=== PATIENT | female | born 1985 | race African-American/Black ===

== ENCOUNTER 2021-02-15 09:52 | Outpatient (CLI) | payer OTHER | END 2021-02-15 09:53 | disposition home or self-care (01) | LOC: CSHCT 09:52 | PROVIDERS: ATTEND Family Medicine Sports Medicine | DX: R31.29 Other microscopic hematuria (principal) | CPT/HCPCS: 74176 ==

== ENCOUNTER 2022-06-04 20:21 | Emergency (ER) | payer BC ==
[~2022-06-04 20:21] MED LIST: Iopamidol 370 76% 100 ML VIAL ONE
[2022-06-04] MEDS ORDERED: Ondansetron PF 4 MG/2 ML Vial ONE (20:42)
[2022-06-04] MEDS ORDERED: Morphine 2 MG/ML VIAL ONE ×2 (20:43)
[2022-06-04 21:24] LABS: #Basophils 0.1 10x3/uL (0.0-0.2); #Neutrophils 10.8 10x3/uL (1.5-8.4); %Basophils 0.4 % (0.0-2.0); %Eosinophils 0.2 % (0.0-6.0); %Lymphocytes 13.8 % (18.0-47.0); %Monocytes 7.5 % (0.0-10.0); %Neutrophils 77.3 % (40.0-75.0); Mean Corpuscular HGB CONC 30.4 g/dL (32.0-36.0); Mean Corpuscular Hemoglobin 26.3 pg (27.0-33.0); Mean Corpuscular Volume 86.3 fl (81.6-98.3); Mean Platelet Volume 10.2 fl (7.4-10.4); Platelet Count 500 10x3/uL (150-450); RBC Distribution Width 16.4 % (11.5-14.5); Red Blood Cell (RBC) Count 4.95 10x6/uL (3.90-5.03)
[2022-06-04 21:36] LABS: ALT (SGPT) 22 U/L (8-55); AST (SGOT) 12 U/L (5-34); Alkaline Phosphatase 147 U/L (40-110); BUN (Urea Nitrogen) 6 mg/dL (7.0-18.7); Bilirubin, Total 0.3 mg/dL (0.2-1.2); Calc. Creatinine Clearance 0 mL/min (70-130); Calcium 9.8 mg/dL (7.8-10.44); Chloride 106 mmol/L (98-107); Estimated GFR 61; Globulin 4.3 g/dL (2.4-3.5); Glucose 485 mg/dL (70-105); Lipase 7 U/L (8-78); Potassium 4.2 mmol/L (3.5-5.1); Protein, Total 8.3 g/dL (6.0-8.3); Sodium 135 mmol/L (136-145)
[2022-06-04 21:38] LABS: Carbon Dioxide Less than 8 mmol/L (22-29)
[2022-06-04 22:07] LABS: Bilirubin Neg (Negative); Blood, Urine 25 (Negative); Clarity Clear (Clear); Glucose, Urine (Dipstick) >=1000 mg/dL (Negative); Ketone, Urine 150 mg/dL (Negative); Leukocyte 25 (Negative); Nitrite Negative (Negative); Protein, Urine (Dipstick) 30 mg/dl (Neg-Trace); Urobilinogen Normal mg/dL (Less than 2)
[2022-06-04 22:18] LABS: Bacteria/HPF None Seen HPF (None Seen); RBC/HPF 0-3 HPF (0-3); Squamous Epithelial 0-3 HPF (0-3); Yeast-Budding Rare HPF (None Seen)
[2022-06-04 22:19] LABS: Yeast-Hyphae Rare HPF (None Seen)
[2022-06-04 22:53] LABS: SARS-CoV-2 NAA Rapid Test Not Detected (NotDetected)
[2022-06-04] MEDS ORDERED: Piperacillin/Tazobactam 4.5 GM VIAL ONE (23:37)
[2022-06-04] MEDS ORDERED: NS 0.9% w/ 40 MEQ KCL 1,000 ML IV ONE (23:52)
[2022-06-04] MEDS ORDERED: INSULIN REGULAR IN 0.9 % NACL 100 UNIT/100 ML BAG ONE (23:58)
[2022-06-05] MEDS ORDERED: Ondansetron PF 4 MG/2 ML Vial ONE (00:17)
[2022-06-05 00:43] LABS: Lactic Acid 2.2 mmol/L (0.5-2.2)
[2022-06-05 00:47] LABS: Actual Bicarbonate (HCO3v) 5 mEq/L (22-28); Base Excess -23.5 mEq/L (-2.0 to +3.0); Calcium, Ionized (venous) 1.18 mmol/L (1.16-1.32); Chloride (VBG) 107 mmol/L (98-106); Critical Notified By: CP.PH; Puncture Site Other Site; RapidComm Collect By LAB.YY; Sodium 134.8 mmol/L (133-146); pH (venous) 7.06 (7.32-7.43)
[2022-06-05] MEDS ORDERED: Lorazepam 2 MG/ML VIAL ONE (01:01)
== END 2022-06-05 01:58 | disposition short-term general hospital (02) ==
LOC: CSHERS 20:21
DX: E10.10 Type 1 diabetes mellitus with ketoacidosis without coma (principal); E10.65 Type 1 diabetes mellitus with hyperglycemia; Z20.822 Contact with and (suspected) exposure to COVID-19
CPT/HCPCS: 36415; 36416; 71045; 74177; 80053; 81003; 81015; 82010; 82805; 83605; 83690; 85025; 87040; 87077; 87086; 93005; 96361; 96365; 96367; 96368; 96375; J1815; J2060; J2270; J2405; J2543; J3480; Q9967

== ENCOUNTER 2022-10-25 06:33 | Day surgery (SDC) | payer BC ==
[2022-10-19 13:32] VITALS: BMI 42.0
[2022-10-25] MEDS ORDERED: Bupivacaine 0.25% HCL 30 ML VIAL ONE (08:21)
[2022-10-25] MEDS ORDERED: PROPOFOL 20 ML ONE (08:22)
[2022-10-25] MEDS ORDERED: EPINEPHrine 1 MG/ML AMP ONE (08:22)
[2022-10-25] MEDS ORDERED: Iopamidol 0 ML ONE (08:22)
[2022-10-25] MEDS ORDERED: Esmolol 100 MG/10 ML VIAL ONE (08:23)
[2022-10-25] MEDS ORDERED: Ondansetron PF 4 MG/2 ML Vial ONE (08:23)
[2022-10-25] MEDS ORDERED: Rocuronium Bromide 10 MG/ML (10ML VIAL) ONE (08:23)
[2022-10-25] MEDS ORDERED: Midazolam HCl 2 mg/2 ml Vial ONE (08:23)
[2022-10-25] MEDS ORDERED: Lidocaine 2% PF 5 ML VIAL ONE (08:23)
[2022-10-25] MEDS ORDERED: Dexamethasone 4 mg/ml Vial ONE (08:23)
[2022-10-25] MEDS ORDERED: Fentanyl 100 MCG/2 ML VIAL ONE ×2 (08:23→10:22)
[2022-10-25] MEDS ORDERED: SUGAMMADEX SODIUM 200 MG/2 ML VIAL ONE (08:34)
[2022-10-25] MEDS ORDERED: Clindamycin/D5W 600 mg/50 ml Premix Bag ONE (08:37)
[2022-10-25] MEDS ORDERED: Ketorolac Tromethamine 30 MG/ML VIAL ONE (10:03)
[2022-10-25] MEDS ORDERED: PHENYLEPHRINE-NS 100 MCG/ML 10 ML SYRINGE ONE (10:08)
[2022-10-25] MEDS ORDERED: HYDROcodone/Acetaminophen 5/325 mg Tablet ONE (12:16)
== END 2022-10-25 13:00 | disposition home or self-care (01) ==
LOC: CSHSDC 06:33
PROVIDERS: ATTEND Surgery
PROC: 0FT44ZZ Resection of Gallbladder, Percutaneous Endoscopic Approach (ICD-10-PCS; principal; 2022-10-25)
DX: K80.10 Calculus of gallbladder with chronic cholecystitis without obstruction (principal); K66.0 Peritoneal adhesions (postprocedural) (postinfection); E10.10 Type 1 diabetes mellitus with ketoacidosis without coma; E66.01 Morbid (severe) obesity due to excess calories; Z68.43 Body mass index [BMI] 50.0-59.9, adult; E55.9 Vitamin D deficiency, unspecified; M79.89 Other specified soft tissue disorders; E88.81 Metabolic syndrome and other insulin resistance; G47.33 Obstructive sleep apnea (adult) (pediatric); I10 Essential (primary) hypertension; K21.9 Gastro-esophageal reflux disease without esophagitis; E78.5 Hyperlipidemia, unspecified; E10.42 Type 1 diabetes mellitus with diabetic polyneuropathy; G43.909 Migraine, unspecified, not intractable, without status migrainosus; K80.50 Calculus of bile duct without cholangitis or cholecystitis without obstruction; K44.9 Diaphragmatic hernia without obstruction or gangrene; E10.9 Type 1 diabetes mellitus without complications; F41.9 Anxiety disorder, unspecified; F32.A Depression, unspecified; Z79.899 Other long term (current) drug therapy
CPT/HCPCS: 88304; C1889; J0171; J1100; J1610; J1885; J2001; J2250; J2405; J2704; J3010; J3490; Q9967; S0020